=== PATIENT | female | born 1955 ===

== ENCOUNTER 2019-06-11 09:07 | Outpatient (CLI) | payer OTHER | END 2019-06-11 09:08 | disposition home or self-care (01) | LOC: SONOGRAMA 09:07 | DX: E04.1 Nontoxic single thyroid nodule (principal) ==

== ENCOUNTER 2022-05-10 08:35 | Outpatient (CLI) | payer OTHER | END 2022-05-10 08:38 | disposition home or self-care (01) | LOC: SONOGRAMA 08:35 | PROVIDERS: ATTEND Pathology Anatomic Pathology & Clinical Pathology | DX: R92.1 Mammographic calcification found on diagnostic imaging of breast (principal); R92.0 Mammographic microcalcification found on diagnostic imaging of breast ==